=== PATIENT | male | born 1975 | race Caucasian/White ===

== ENCOUNTER 2016-11-20 12:09 | Observation (INO) | payer MEDICARE, MEDICAID ==
[2016-11-20] VITALS (8 sets, daily range): BP systolic 125–154; BP diastolic 47–95; PULSE 59–103; RESP 12–20; O2SAT 94–99
[~2016-11-20] VITALS: Ht 182.9 cm; Wt 103.0 kg
[~2016-11-20 12:09] MED LIST: ALBU8.5H2 IH; ARIP10TA14 PO; DIAZ5TAB PO; EPIN0.3P2 IJ; FENT-2 TOP; NITR0.4T SL; OMEP-113 PO; OXYC20TA4 PO; SERT100T PO
--- NOTE | 2016-11-20 12:40 | ED.REPORT ---
HPI-Chest Pain 40 and Over Date of Service Nov 20, 2016 ED Provider: Orlin Rachel MD Pt is a 41 y/o male w/ a hx of HTN, WPW, chronic back pain, presenting to the ED c/o mild, intermittent substernal CP onset 10 days ago. He c/o associated spinning-sensation dizziness, lightheadedness, diaphoresis, nausea, vomiting, malaise. His chief complaint at this time is constant dizziness which he describes as lightheadedness. Pt denies SOB, cough, weakness, numbness, tingling , speech or vision changes. These episodes of chest pain last about a split second each time and are followed by mild pressure lasting a few minutes. These episodes occur about each hour. He has experienced somewhat similar symptoms previously but not constant and associated with lightheadedness like today. He has had 2 ablations in the past in attempt to correct his WPW but these were unsuccessful. His dizziness is persistent and not exacerbated with positional change. He denies recent immobilization, hemoptysis, recent lower extremity edema or pain, history of PE or DVT. Nursing Notes Stated Complaint: CHEST PAINS/DIZZY,WEAK,OUT OF BREATH Chief Complaint: Chest Pain Nursing Notes Reviewed: Yes Allergies: Coded Allergies: promethazine (Verified Allergy, Severe, Anaphylaxis, 11/20/16) Uncoded Allergies: ANTIEMETICS (Allergy, Severe, anxious and flailing/DYSKINESIA, 11/01/12) Scheduled Albuterol HFA (Proair HFA) 8.5 Gm Hfa.aer.ad 2 PUFFS IH Q4-6H Fentanyl 75 mcg/hr Patch (Fentanyl 75 mcg/hr Patch) 1 Each Patch.td72 1 EACH TOP Q48 Nitroglycerin SL (Nitrostat) 0.4 Mg Tab.subl 0.4 MG SL Q5MIN Scheduled PRN oxyCODONE (oxyCODONE) 20 Mg Tablet 20 MG PO Q6H PRN PRN For Pain Miscellaneous Medications Epinephrine (Epipen 2-Konrad) 0.3 Mg/0.3 Ml Auto.injct 0.3 MG IJ General Time Seen by MD: 12:18 Chief Complaint Chest pain Hx Obtained From: Patient Arrived By: Walk-in Sudden in Onset?: No Onset Occurred: More than a week ago... Symptom Duration: Intermittent Location: : Substernal Quality: Painful Radiation: : Does not radiate Severity: Current: No pain currently Severity: Maximum: Mild Similar Sx Previous: Yes Risk Factors PERC Rule PERC Result: All PERC criteria "No", PERC rule satisfied Past Medical History Past Medical History 1. Asthma. 2. Hypertension. 3. Iqxrp-Viyqvfdsy-Aeqvh syndrome. 4. Chronic back pain Past Surgical History 1. Right knee surgery in 1990. 2. L4-5 laminectomy in 2005. 3. Multiple surgeries on the right wrist and arm resulting in fusion in 2006 and 2007. 4. C5-6 ACDF in 2008. 5. L3-4 XLIF in 2009. 6. Left L4-5 microdiskectomy in 2010. The last three surgeries were done by Dr. Espinoza Fernandez. 7. Removal of hardware at C5-6 and C6-7. 8. ACDF by Dr. Scruggs on April 26, 2011. 9. The patient also had a vasectomy in the past. Smoking History Current Every Day Smoker Social History Alcohol Use: 1-3 per week Drug Use: Denies drug use Ambulatory Status Independent Review of Systems Constitutional: Reports: Malaise, Denies: Chills, Fever Respiratory: Denies: Hemoptysis, Non-productive cough, Shortness of breath Cardiovascular: Reports: Chest pain GI: Reports: Nausea, Vomiting, Denies: Abdominal pain Skin: Reports Diaphoresis Neurologic: Reports: Dizziness, Lightheaded, Spinning sensation, Denies: Focal weakness, Headache, Numbness, Slurred speech, Unable to speak, Vision change, Weakness Complete sys rev & neg: except as marked. Physical Exam Initial Vital Signs Vital Signs (First) Date Time Temp Pulse Resp B/P Pulse Ox O2 Delivery O2 Flow Rate FiO2 11/20/16 12:12 36.9 103 18 154/95 99 Room Air Initial VS: Reviewed, Vital signs abnormal ENT: Mucous membranes moist, Conjunctiva normal, No scleral icterus Neck: Supple, Full range of motion Extremities: Vascular intact, Neuro intact, No swelling Skin: Warm Psychiatric: Mood/affect normal, Behavior normal, Normal thought content General/Constitutional: Awake, Alert, No acute distress, Cooperative, Not toxic appearing Respiratory / Chest: Breath sounds NL, Breath sounds = bilat, No respiratory distress, No rales, No rhonchi, No wheezing, No retractions, No stridor Cardiovascular: Heart rate NL, Regular rhythm, Heart sounds NL, No murmurs Abdomen: Soft, Non-tender Skin: Color NL, Warm Color / Condition: Positive: Diaphoresis present Head / Eyes: Normocephalic, PERRL, EOMI, No nystagmus Axtell hallpike maneuver negative Interpretation & Diagnostics Lab Results Interpretation Result Diagram: 11/20/16 1220 11/20/16 1220 Test 11/20/16 12:20 White Blood Count 11.8th/mm3 (3.8-10.1) Red Blood Count 5.39mil/mm3 (4.40-5.80) Hemoglobin 14.8g/dL (13.8-17.2) Hematocrit 45.3% (41.0-50.0) Mean Corpuscular Volume 84.0fL (81-100) Mean Corpuscular Hemoglobin 27.5pg (27.0-35.0) Mean Corpuscular Hemoglobin Concent 32.7% (32.0-37.0) Red Cell Distribution Width 14.9% (12.3-15.4) Platelet Count 259bil/L (150-400) Neutrophils (%) (Auto) 59.3% (40-74) Lymphocytes (%) (Auto) 30.9% (14-46) Monocytes (%) (Auto) 7.1% (4-12) Eosinophils (%) (Auto) 2.1% (0-5) Basophils (%) (Auto) 0.3% (0-3) Sodium Level 138mEq/L (134-144) Potassium Level 4.2mEq/L (3.5-5.2) Chloride Level 104mEq/L (97-108) Carbon Dioxide Level 18mmol/L (18-29) Blood Urea Nitrogen 11mg/dL (6-24) Creatinine 0.98mg/dL (0.76-1.27) Estimat Glomerular Filtration Rate 89mL/min (>59) Glucose Level 134mg/dL (60-99) Calcium Level 9.2mg/dL (8.5-10.1) Magnesium Level 2.0mg/dL (1.6-2.6) Total Bilirubin 0.3mg/dL (0.0-1.2) Aspartate Amino Transf (AST/SGOT) 17U/L (0-50) Alanine Aminotransferase (ALT/SGPT) 15U/L (0-44) Alkaline Phosphatase 87U/L (25-150) Troponin T < 0.010ug/L (0.0-0.011) Total Protein 7.8g/dL (6.4-8.4) Albumin 4.1g/dL (3.4-5.0) Hold Conde Top Tube Received (Received) ECG Interpretation ECG Interpretation: Sinus rhythm rate 81 Delta waves present consistent with known WPW Time: 12:56 Interpreted by: ED physician Normal ECG Interpretation: No acute ischemic changes X-Ray Chest Interpretation Chest Xray Interpretation: IMPRESSION: Normal for age, source of current symptoms is not seen. Dictated by: Rosendo Olivares M.D. on 11/20/2016 at 12:54 Approved by: Rosendo Olivares M.D. on 11/20/2016 at 12:54 View: Portable, 1 view Interpretation / Wet Read by: Interpret - Radiologist Re-Eval/Medical Decision Med Decision/Clinical Course 41-year-old male history of Uuwoy-Lllwajkdw-Xtkww presenting with intermittent chest pain 10 days. Reports substernal sharp chest pain with 2 minutes of chest pressure multiple times daily. It is atypical nonexertional. Associated dizziness lightheadedness. No EKG changes he is not WPW. His troponins are negative. Discussed with cardiology recommends admission for ACS rule out, echocardiogram, possible stress test. Time of Eval: 14:43 Re-Evaluation/Progress Note: Pt rechecked. Informed pt of need for admission. Pt understands and agrees with need for admission. All questions addressed. Consultation #1: Referral / Consult Name: Haris Mcclelland MD Consulted With: Cardiology Call Returned at: 14:42 E Business Consultant: Agrees with eval, Agrees with plan Note: Recommends admit for ACS rule out. Will consult. Consultation #2: Referral / Consult Name: Zi Lee MD Consulted With: Hospitalist Call Returned at: 15:37 E Business Consultant: Will see patient, Agrees with eval, Agrees with plan, Accepts admit Counseled Regarding: Diagnosis, Lab results, Need for admission Discharge & Departure Primary Impression: Chest pain Chest pain type: unspecified Qualified Code: R07.9 - Chest pain, unspecified Additional Impression: Frlxf-Rkfafwdyr-Aasrq (WPW) syndrome Disposition: ADMITTED TO HOSPITAL Discharge Condition All VS Reviewed: Yes Condition: Stable Referrals: Ping Menchaca (PCP) Scribe Attestation Portions of this note were transcribed by Jack Cunningham. I, Dr. Rachel personally performed the history, physical exam and medical decision-making; I reviewed and confirmed the accuracy of the information in the transcribed note. copies to: Ping Menchaca Ben M MD Nov 20, 2016 12:40 JACK CUNNINGHAM Nov 20, 2016 12:56
[2016-11-20 12:43] LABS: BASOPHILS % (AUTO) 0.3 % (0-3); EOSINOPHILS % (AUTO) 2.1 % (0-5); MONOCYTES % (AUTO) 7.1 % (4-12); Mean Corpuscular Hemoglobin 27.5 pg (27.0-35.0); NEUTROPHILS % (AUTO) 59.3 % (40-74); Platelet Count 259 bil/L (150-400)
--- NOTE | 2016-11-20 12:55 | DRSVH ---
PROCEDURE: X-RAY CHEST ONE VIEW, PORTABLE ([id number]) INDICATIONS: chest pain TECHNIQUE: One view of the chest was acquired. COMPARISON: [facility], , CHEST 1VW (PORTABLE), 07/12/2013, 16:54. FINDINGS: Surgical changes and devices: None. Lungs and pleura: No pleural effusions or pneumothorax. Lungs are clear. Mediastinum: Mediastinal contours appear normal. Heart size is normal. Bones and chest wall: No suspicious bony lesions. Overlying soft tissues appear unremarkable. IMPRESSION: Normal for age, source of current symptoms is not seen. Dictated by: Rosendo Olivares M.D. on 11/20/2016 at 12:54 Approved by: Rosendo Olivares M.D. on 11/20/2016 at 12:54
[2016-11-20] MEDS ORDERED: 0.9% Sodium Chloride 1,000 ML IV ONE (13:14)
[2016-11-20 13:21] LABS: TROPONIN T < 0.010 ug/L (0.0-0.011)
[2016-11-20] MEDS ORDERED: Alum-Mag Hydrox-Simeth 30 mL Suspension PO PRN ×2 (15:40→18:25)
[2016-11-20] MEDS ORDERED: Ondansetron 2 mg/mL 2 mL Inj IVPUSH PRN ×2 (15:40→18:25)
--- NOTE | 2016-11-20 16:19 | NUR ---
[place] [facility] [place]ved from ER nurse Flory Madden. awaiting patient from ER.
--- NOTE | 2016-11-20 16:36 | NUR ---
arrival to [facility] [place] Patient arrived to unit approx 1630. Stable vital signs. Pain to chest 3/10 and is tolerable. continue to monitor.
[2016-11-20] MEDS ORDERED: Polyethylene Glycol (PEG) 17 Gm Powder PO PRN (18:25)
--- NOTE | 2016-11-20 19:00 | HP ---
[address] [address] HISTORY AND PHYSICAL PATIENT: DANIELLE RUBIO : 1975 MR#: [id number] ADMIT: 11/20/2016 JOB ID: [id number] PRIMARY CARE PROVIDER: None current. ADMISSION STATUS: Patient admitted from ED, observational status, green team. CHIEF COMPLAINT: Chest pain. HISTORY OF PRESENT ILLNESS: This is a 41-year-old male with 10 days of chest pain. He is getting this kind of sharp substernal chest discomfort that lasts anywhere from 30-60 seconds at the most. He has tried moving, it is not positional. Not related to coughing. It is not related to exercise or rest. It just comes a couple of times a day. He is having 5-10 such episodes a day; but, because it is lasting a little longer and is a little more frequent, he finally comes to the ED today. He has no known cardiac disease but does have a father with an CO at age 48. Evaluated in the ED with a negative troponin and a EKG which showed no evidence of ischemia. The patient had a little nausea occasionally in the morning, but no emesis, no diarrhea, no headache, no shortness of breath or other complaints or problems. REVIEW OF SYSTEMS: Complete review of systems obtained. All pertinent positives as noted in the HPI as above. The rest of the review of systems is negative. PAST MEDICAL HISTORY: 1. Chronic pain syndrome, primarily orthopedic, back and neck. 2. Right arm fusion. 3. Neck and back surgery. 4. Known Bdidr-Ccxefrgeo-Nzmht syndrome. MEDICATIONS: 1. Fentanyl patch 50 mcg every 48 hours. 2. Oxycodone 20 mg up to five times a day. 3. Baby aspirin 81 mg daily. ALLERGIES: ANY NAUSEA MEDICINES. SOCIAL HISTORY: Lives with a roommate. Does not smoke. Consumes no drugs. There is no alcohol use. FAMILY HISTORY: Father had an CO around age 48. His mother has had a pacemaker placed. PHYSICAL EXAMINATION: Overweight male, resting comfortably. Not in acute distress. No pain now. Blood pressure 150/85, O2 sats 97% on room air. Skin is warm and dry. Eyes: PERRLA. EOMs intact. Mouth shows adequate hydration. No JVD. No bruits. Cardiac is regular. No murmurs. No tenderness to his anterior chest wall. His lungs have some scattered wheezes. His abdomen is soft, nonacute, benign. Extremities showed no edema. Cranial nerves 2-12 are intact. No gross motor or sensory defects noted. DIAGNOSIS: 1. Chest pain, rule out myocardial infarction. The patient will be admitted to the hospital. Observational status. Will maintain his aspirin daily, get serial troponins and EKG in the morning, and move on to a myocardial perfusion scan tomorrow. Will also get a CTA looking for evidence of pulmonary embolism. 2. Nhzsq-Mpdyacbbi-Tirog syndrome. Present on admission. Stable. Will monitor. 3. Chronic pain. Continue with the patient's fentanyl patch and oxycodone. CODE STATUS: FULL CODE. Code sheet filled out.
--- NOTE | 2016-11-20 19:12 | NUR ---
Med Req Med Req updated. Night nurse aware Admit needs to be done.
[2016-11-20 19:52] LABS: TROPONIN T < 0.010 ug/L (0.0-0.011)
[2016-11-20] MEDS ORDERED: Albuterol 2.5 mg/3 mL Inhalation Solution NEB PRN (20:00)
--- NOTE | 2016-11-20 20:01 | NUR ---
JERO explained and signed. Copy of JERO and Medicare self administered medication information given to pt.
--- NOTE | 2016-11-20 20:34 | DRSVH ---
PROCEDURE: CT ANGIO CHEST PULMONARY EMBOLISM ([id number]) INDICATIONS: chest pain TECHNIQUE: After the administration of intravenous contrast, 2 mm thick sections acquired from the pulmonary api nancy to the posterior costophrenic angles. 3-dimensional maximum intensity projection (MIP) coronal a nd sagittal reformats were then acquired through the thorax. For radiation dose reduction, the follo wing was used: automated exposure control, adjustment of mA and/or kV according to patient size. COMPARISON: [facility], CR, CHEST 1VW (PORTABLE), 07/12/2013, 16:54. [facility], CR, XR CHEST 1VW (PORTABLE), 11/20/2016, 12:21. FINDINGS: Image quality: Excellent. Pulmonary arteries: Pulmonary arteries are normal in size, and demonstrate no intraluminal filling d efects to suggest central pulmonary embolism. Lungs and pleura: Lungs are clear. No pleural effusions or pneumothorax. Central and peripheral ai rways are patent. Mediastinum: Heart size is normal, without pericardial effusion. No mediastinal or hilar adenopathy . Thoracic aorta is normal in caliber and enhancement. Esophagus is normal in caliber, without hiat al hernia. Bones and chest wall: No suspicious bony lesions. Ribs and thoracic spine appear intact throughout. Thyroid gland appears normal where well visualized. No axillary or supraclavicular adenopathy. An terior cervical fusion plate at the cervical thoracic junction. Abdomen: Visualized upper abdominal solid organs appear normal in the early arterial phase of enhanc ement. IMPRESSION: Source of chest pain is not seen. No pulmonary embolus is found. Dictated by: Rosendo Olivares M.D. on 11/20/2016 at 20:29 Approved by: Rosendo Olivares M.D. on 11/20/2016 at 20:32
[2016-11-21 00:11] VITALS: BP 125/73; PULSE 52; RESP 16; O2SAT 97
--- NOTE | 2016-11-21 01:50 | NUR ---
Home Medications / Nicotine Home meds in pharmacy. Reports when asked non-smoker but admitted to using e-cigarettes daily and wants Nicotine patch. Advised will have dayshift request order as possibly interacts with stress test.
[2016-11-21 04:58] VITALS: BP 130/73; PULSE 54; RESP 18; O2SAT 98
--- NOTE | 2016-11-21 08:44 | NUR ---
Stress test CVL called for stress test. patient left unit for stress test. NPO.
--- NOTE | 2016-11-21 10:07 | NUR ---
Stress test patient is back from stress test via wheel chair. per Mirta at [facility] states," 1st portion of stress test done, cardiology will take a look at the pictures and decide if 2nd portion of the stress need to be done."
[2016-11-21 10:13] VITALS: BP 144/79; PULSE 63; RESP 18; O2SAT 97
[2016-11-21 10:50] VITALS: PULSE 73
--- NOTE | 2016-11-21 12:12 | NUR ---
Social Work- Initial Assessment/Readiness for D/C Data: See Initial Assessment for additional information. Pt is a 41 yr old male admitted for Chest Pain. Pt's insurance is [employer] and [email or web address]. Pt has no PCP yet as he recently moved from [place]. No NOK information given. Pt discussed in multidisciplinary rounds, pending stress test results pt could d/c today. No needs identified. SW met with pt at bedside. Pt is residing in [place] with his friend until he finds an apartment. Pt's capacity for self-care assessed. Pt is independent with ADLs and self-care. Pt has no HH, SNF, LTC, or VA history or benefits. Pt declined information regarding DPOA. Pt provided with d/c planning checklist and phone number on [employer]. Pt to d/c home with friend to transport via POV. No d/c needs. Assessment: Pt who is independent at baseline. Plan: Pt to d/c home with friend to transport via POV. No d/c needs. SW will continue to follow. KELLY Bangura Addendum: 11/21/16 at 1216 by ANNE DEVRIES SS Amended: Links added.
--- NOTE | 2016-11-21 12:21 | PCM.DIMED ---
Discharge Instructions Date of Service Nov 21, 2016 Dates of Hospitalization Nov 20, 2016 at 16:02 Discharge Diagnosis Discharge Diagnosis Chest pain resolved, etiology unclear Negative workup for VT, blood clots, etc Qynf-Iomgruglu-Ixkyo syndrome Chronic pain Diet Discharge Diet: Heart Healthy Activity Discharge Activity: No restrictions Patient Instructions Follow-up plan I would like you to follow up with a physician, since you do not have one our [employer] will give you the information so you can be seen at the residency clinic. Follow-up with PCP in: 1 week Zi Lee MD Nov 21, 2016 12:21
--- NOTE | 2016-11-21 12:29 | PCM.DC.MED ---
Discharge Summary Date of Service Nov 21, 2016 Dates of Hospitalization Date of Hospital Admission Nov 20, 2016 at 16:02 Date of Discharge: Nov 21, 2016 Providers: Admitting Physician: Zi Lee MD Primary Care Physician: Bryan Attending Physician: Zi Lee MD Diagnosis at Time of Discharge Diagnosis at Time of Discharge Chest pain, etiology unclear, poa, resolved Negative workup for LA, blood clots, etc Tukr-Xlrlulphg-Ulkac syndrome, poa, stable Chronic pain, poa, stable Procedures XRay, CTs & MRIs PROCEDURE: CT ANGIO CHEST PULMONARY EMBOLISM ([id number]) INDICATIONS: chest pain FINDINGS: Image quality: Excellent. Pulmonary arteries: Pulmonary arteries are normal in size, and demonstrate no intraluminal filling defects to suggest central pulmonary embolism. Lungs and pleura: Lungs are clear. No pleural effusions or pneumothorax. Central and peripheral airways are patent. Mediastinum: Heart size is normal, without pericardial effusion. No mediastinal or hilar adenopathy. Thoracic aorta is normal in caliber and enhancement. Esophagus is normal in caliber, without hiatal hernia. Bones and chest wall: No suspicious bony lesions. Ribs and thoracic spine appear intact throughout. Thyroid gland appears normal where well visualized. No axillary or supraclavicular adenopathy. Anterior cervical fusion plate at the cervical thoracic junction. Abdomen: Visualized upper abdominal solid organs appear normal in the early arterial phase of enhancement. IMPRESSION: Source of chest pain is not seen. No pulmonary embolus is found. Dictated by: Rosendo Olivares M.D. on 11/20/2016 at 20:29 Brief History HISTORY OF PRESENT ILLNESS: This is a 41-year-old male with 10 days of chest pain. He is getting this kind of sharp substernal chest discomfort that lasts anywhere from 30-60 seconds at the most. He has tried moving, it is not positional. Not related to coughing. It is not related to exercise or rest. It just comes a couple of times a day. He is having 5-10 such episodes a day; but, because it is lasting a little longer and is a little more frequent, he finally comes to the ED today. He has no known cardiac disease but does have a father with an LA at age 48. Evaluated in the ED with a negative troponin and a EKG which showed no evidence of ischemia. The patient had a little nausea occasionally in the morning, but no emesis, no diarrhea, no headache, no shortness of breath or other complaints or problems. REVIEW OF SYSTEMS: Complete review of systems obtained. All pertinent positives as noted in the HPI as above. The rest of the review of systems is negative. PAST MEDICAL HISTORY: 1. Chronic pain syndrome, primarily orthopedic, back and neck. 2. Right arm fusion. 3. Neck and back surgery. 4. Known Cmejl-Fgtzrizqg-Kfywa syndrome. MEDICATIONS: 1. Fentanyl patch 50 mcg every 48 hours. 2. Oxycodone 20 mg up to five times a day. 3. Baby aspirin 81 mg daily. ALLERGIES: ANY NAUSEA MEDICINES. SOCIAL HISTORY: Lives with a roommate. Does not smoke. Consumes no drugs. There is no alcohol use. FAMILY HISTORY: Father had an LA around age 48. His mother has had a pacemaker placed. Hospital Course Patient had no further episodes of chest pain since admission. CTA, troponin times 3, ekg all negative. Exercise MIBI completely normal per phone call from Dr. Mcclelland, dictated report pending. Etiology of discomfort, which has resolved, remains unclear. Continue with current medications including baby ASA daily and establish with physician here, we will give number for residency clinic. If symptoms persist recommend out patient [id number] up as needed. Exam Vital Signs (Last) Date Time Temp Pulse Resp B/P Pulse Ox O2 Delivery O2 Flow Rate FiO2 11/21/16 10:50 73 11/21/16 10:13 36.8 18 144/79 97 Room Air Exam Skin; no rashes, bit diaphoreitc, just finished the exercise protocol CV; reg, no murmur Resp; clear GI; soft non tender benign Test 11/20/16 12:20 11/20/16 19:00 11/21/16 10:35 White Blood Count 11.8th/mm3 (3.8-10.1) Red Blood Count 5.39mil/mm3 (4.40-5.80) Hemoglobin 14.8g/dL (13.8-17.2) Hematocrit 45.3% (41.0-50.0) Mean Corpuscular Volume 84.0fL (81-100) Mean Corpuscular Hemoglobin 27.5pg (27.0-35.0) Mean Corpuscular Hemoglobin Concent 32.7% (32.0-37.0) Red Cell Distribution Width 14.9% (12.3-15.4) Platelet Count 259bil/L (150-400) Neutrophils (%) (Auto) 59.3% (40-74) Lymphocytes (%) (Auto) 30.9% (14-46) Monocytes (%) (Auto) 7.1% (4-12) Eosinophils (%) (Auto) 2.1% (0-5) Basophils (%) (Auto) 0.3% (0-3) Sodium Level 138mEq/L (134-144) Potassium Level 4.2mEq/L (3.5-5.2) Chloride Level 104mEq/L (97-108) Carbon Dioxide Level 18mmol/L (18-29) Blood Urea Nitrogen 11mg/dL (6-24) Creatinine 0.98mg/dL (0.76-1.27) Estimat Glomerular Filtration Rate 89mL/min (>59) Glucose Level 134mg/dL (60-99) Calcium Level 9.2mg/dL (8.5-10.1) Magnesium Level 2.0mg/dL (1.6-2.6) Total Bilirubin 0.3mg/dL (0.0-1.2) Aspartate Amino Transf (AST/SGOT) 17U/L (0-50) Alanine Aminotransferase (ALT/SGPT) 15U/L (0-44) Alkaline Phosphatase 87U/L (25-150) Total Protein 7.8g/dL (6.4-8.4) Albumin 4.1g/dL (3.4-5.0) Hold Conde Top Tube Received (Received) Thyroid Stimulating Hormone (TSH) 1.680uIU/mL (0.450-4.500) Free Thyroxine 1.26ng/dL (0.82-1.77) Troponin T 0.010ug/L (0.0-0.011) Discharge Medications Discharge Medications Albuterol HFA (Proair HFA) 8.5 Gm Hfa.aer.ad 2 PUFFS IH Q4-6H (Reported) Aspirin (Aspirin) 81 Mg Tablet 81 MG PO DAILY Prescribed by: Zi LEE MD Fentanyl 75 mcg/hr Patch (Fentanyl 75 mcg/hr Patch) 1 Each Patch.td72 1 EACH TOP Q48 (Reported) Nitroglycerin SL (Nitrostat) 0.4 Mg Tab.subl 0.4 MG SL Q5MIN (Reported) As needed oxyCODONE (oxyCODONE) 20 Mg Tablet 20 MG PO Q6H PRN PRN For Pain (Reported) Miscellaneous Medications Epinephrine (Epipen 2-Konrad) 0.3 Mg/0.3 Ml Auto.injct 0.3 MG IJ (Reported) Followup Plan Follow-up plan I would like you to follow up with a physician, since you do not have one our [employer] will give you the information so you can be seen at the residency clinic. Discharge Diet: Heart Healthy Discharge Activity: No restrictions Follow-up with PCP in: 1 week Time spent 35 minutes time spent so far coordinating discharge, current time is 12:32 pm. Zi Lee MD Nov 21, 2016 12:29
[2016-11-21] MEDS ORDERED: ASPI-973 PO (12:31)
--- NOTE | 2016-11-21 12:55 | NUR ---
Discharge: Data: Pt to discharge today. Pt to d/c home with friend to transport via POV. No SW needs identified. Assessment: Pt who is independent at baseline. Plan: Pt to d/c home with friend to transport via POV. No SW needs identified. Luly Espinosa MSW
--- NOTE | 2016-11-21 13:03 | NUR ---
Discharge Patient is alert and orientedX3. Dr rodrigues spoke to patient at bed side. Recieved new orders for Discharge. TICKET AGENT gave locked items to patient and agrees. Home Medications from pharmacy given to patient and agrees. Reviewed discharge paper work, discharge instructions, patient is aware no new prescriptions given, and follow up appointment at residency clinic, phone number given by to schedule appointment. patient signed discharge paper work. TICKET AGENT called environmental monitoring technician and removed Telemetry. Pheripheral IV discontinued to left arm with out difficulty. Denies any chest pain or chest discomfort. patient is eating lunch at this time and awaiting ride. patient prefers to walk and left unit at 1311.
--- NOTE | 2016-11-21 21:15 | DRSVH ---
PROCEDURE: EITHER REST OR STRESS ONLY. Exercise myocardial perfusion SPECT with gated imaging and e jection fraction RADIOPHARMACEUTICAL: 22.1 mCi Tc-99m tetrofosmin IV at peak exercise. INDICATIONS: CHEST PAIN. TECHNIQUE: Radiopharmaceutical was injected at peak stress test. SPECT images were obtained, with p erfusion images in short axis, horizontal long axis, and vertical long axis views. Gated images were reviewed using [employer] software. COMPARISON: None. CARDIAC STRESS: A standard David treadmill exercise tolerance test was performed by the patient unde r the supervision of attending staff. The patient exercised for 4 minutes and 33 seconds; functional aerobic impairment ([place]) is +50%. The patient achieved 7 METs of workload. Hemodynamic Data: There is normal blood pressure and heart rate response to exercise. The patient a chieved 89% of maximum predicted heart rate. Symptoms: The patient has baseline chest discomfort, which did not get worse during exertion. The p atient also felt fatigue and dyspnea during exercise. EKG: Baseline rhythm was sinus with evidence of pre-excitation. The patient has known WPW syndrome. The patient has monomorphic PVCs at rest, however, during exercise, there were no significant PVCs, the PVCs were suppressed. During recovery, the PVCs reappeared. There was no ventricular tachycard ia. During exercise, the QRS was not wide, suggestive of conduction through AV node. There were no convincing ischemic changes. There were some baseline ST-T changes. FINDINGS: Raw Data: There appears to be adequate myocardial uptake. Left Ventricular Function: Gated images demonstrate normal left ventricular wall thickening. No seg mental wall motion abnormalities. Left ventricular stress end diastolic volume is 93 mL. Left ventr icular stress ejection fraction is 63%; normal values are above 45%. Myocardial Perfusion: Stress supine and stress prone images were compared to each other. Stress sup ine images revealed minimally decreased perfusion of the basal inferior, which improved during prone images. It suggests diaphragmatic tissue attenuation artifact. I do not see any convincing ischemia infarction pattern. IMPRESSION: I will call this study a normal myocardial perfusion study with evidence of diaphragmati c tissue attenuation artifact. The patient has a history of WPW syndrome. Baseline pre-excitation c hanges are seen. Baseline intermittent premature ventricular contractions are seen without any ventr icular tachycardia, however, during exercise, there was suppression of premature ventricular contract ions. There were no convincing ischemic changes. As far as the perfusion scan is concerned, this is a low-risk myocardial perfusion scan. Dictated by: Haris Mcclelland M.D. on 11/21/2016 at 17:20 Transcribed by: CHERRIE on 11/22/2016 at 0:15 Approved by: Haris Mcclelland M.D. on 11/23/2016 at 13:06
== END 2016-11-21 13:11 | disposition home or self-care (01) ==
LOC: SED 12:09 → MPC 16:02
PROVIDERS: ADMIT Hospitalist; ATTEND Hospitalist
DX: R07.9 Chest pain, unspecified (principal); I45.6 Pre-excitation syndrome; G89.4 Chronic pain syndrome; J45.909 Unspecified asthma, uncomplicated; F17.210 Nicotine dependence, cigarettes, uncomplicated; Z79.82 Long term (current) use of aspirin; Z79.51 Long term (current) use of inhaled steroids
CPT/HCPCS: 36415; 71010; 71275; 78451; 80053; 83036; 83735; 84439; 84443; 84484; 85025; 93005; 93017; 96360; 99285; A9502; G0378; J7030; Q9967